=== PATIENT | female | born 1940 | race Caucasian/White ===

== ENCOUNTER 2016-08-28 08:55 | Emergency (ER) | payer MEDICARE, OTHER ==
[~2016-08-28 08:55] MED LIST: ALDACTONE25 MG PO; ASPIRIN EC81 MG PO; BRILINTA90 MG PO; CLARITIN10 MG PO; COREG12.5 MG PO; COREG25 MG PO; CRESTOR10 MG PO; CYCLOBENZAPRINE10 MG PO; HUMALOG100 UNIT/1 SQ; LANOXIN125 MCG PO; LASIX20 MG PO; PEPCID20 MG PO; SYNTHROID88 MCG PO; TRADJENTA5 MG PO; ULTRAM50 MG PO; ZYLOPRIM300 MG PO
== END 2016-08-28 12:30 | disposition home or self-care (01) ==
LOC: ER 08:55
DX: E11.22 Type 2 diabetes mellitus with diabetic chronic kidney disease (principal); I13.0 Hypertensive heart and chronic kidney disease with heart failure and stage 1 through stage 4 chronic kidney disease, or unspecified chronic kidney disease; N18.3 Chronic kidney disease, stage 3 (moderate); I50.9 Heart failure, unspecified; Z98.51 Tubal ligation status; Z79.82 Long term (current) use of aspirin; Z79.899 Other long term (current) drug therapy; Z87.891 Personal history of nicotine dependence
CPT/HCPCS: 36415; 96372